=== PATIENT | male | born 1990 | race Caucasian/White ===

== ENCOUNTER → 2017-07-30 | Outpatient (REF) | payer BC ==
[2017-07-30 12:43] LABS: HEMATOCRIT 44.2 % (42.0-52.0); HEMOGLOBIN 15.6 g/dl (13.5-17.5); MEAN CORPUSCULAR HEMOGLOBIN 28.3 pg (27.0-33.0); MEAN CORPUSCULAR HGB CONC 35.3 g/dl (32.0-36.5); MEAN CORPUSCULAR VOLUME 80.2 fl (80.0-96.0); PLATELET COUNT, AUTOMATED 272 10^3/uL (150-450); RED BLOOD COUNT 5.51 10^6/uL (4.30-6.10); RED CELL DISTRIBUTION WIDTH 12.9 % (11.5-14.5); WHITE BLOOD COUNT 5.3 10^3/uL (4.0-10.0)
[2017-07-30 13:26] LABS: ALBUMIN 4.4 GM/DL (3.2-5.2); ALBUMIN/GLOBULIN RATIO 1.42 (1.00-1.93); ALKALINE PHOSPHATASE 56 U/L (45-117); ALT/SGPT 36 U/L (12-78); ANION GAP 5 MEQ/L (8-16); AST/SGOT 19 U/L (7-37); BILIRUBIN,TOTAL 0.3 MG/DL (0.2-1.0); BLOOD UREA NITROGEN 10 MG/DL (7-18); CALCIUM LEVEL 9.2 MG/DL (8.5-10.1); CARBON DIOXIDE LEVEL 27 MEQ/L (21-32); CHLORIDE LEVEL 108 MEQ/L (98-107); CREATININE FOR GFR 0.85 MG/DL (0.70-1.30); GLOMERULAR FILTRATION RATE > 60.0 (>60); GLUCOSE, FASTING 102 MG/DL (70-100); POTASSIUM SERUM 4.2 MEQ/L (3.5-5.1); SODIUM LEVEL 140 MEQ/L (136-145); TOTAL PROTEIN 7.5 GM/DL (6.4-8.2)
== END ==
LOC: M SFHCLERA 10:04
DX: I10 Essential (primary) hypertension (principal)
CPT/HCPCS: 80053

== ENCOUNTER 2019-12-19 10:55 | Emergency (ER) | payer BC, OTHER ==
[~2019-12-19] VITALS: Ht 165.1 cm; Wt 74.7 kg
[2019-12-19 10:56] VITALS: BP 165/101
[2019-12-19] MEDS ORDERED: IBUP200T45 PO (11:08)
--- NOTE | 2019-12-19 12:15 | REPVR ---
PROCEDURE INFORMATION: Exam: CT Cervical Spine Without Contrast Exam date and time: 12/19/2019 11:51 AM Age: 29 years old Clinical indication: Injury or trauma; Injury history: Trampoline; Initial encounter; Blunt trauma; Additional info: Injury/numbness in hands TECHNIQUE: Imaging protocol: Computed tomography images of the cervical spine without contrast. Radiation optimization: All CT scans at this facility use at least one of these dose optimization techniques: automated exposure control; mA and/or kV adjustment per patient size (includes targeted exams where dose is matched to clinical indication); or iterative reconstruction. COMPARISON: No relevant prior studies available. FINDINGS: Vertebrae: There is reversal of the normal cervical lordosis at C5 which may be related to muscle spasm. There is no subluxation or fracture. Discs/Spinal canal/Neural foramina: There are degenerative changes with anterior posterior osteophytes at C4-C5 and C5-C6 related to degenerative disc disease. There is central stenosis at C4-C5 and C5-C6. Soft tissues: Unremarkable. Lungs: Lung apices are normal. IMPRESSION: 1. There is reversal of the normal cervical lordosis at C5 which may be related to muscle spasm. 2. There is no subluxation or fracture. 3. Degenerative changes with central stenosis C4-C5 and C5-C6. Electronically signed by: Mina Butler On 12/19/2019 12:14:49 PM
[2019-12-19] MEDS ORDERED: PRED20TA PO (12:36)
[2019-12-19] MEDS ORDERED: CYCL5TAB PO (12:36)
== END 2019-12-19 13:00 | disposition home or self-care (01) ==
LOC: M ED 10:55
DX: S13.4XXA Sprain of ligaments of cervical spine, initial encounter (principal); Y92.9 Unspecified place or not applicable; Y93.44 Activity, trampolining; Y99.9 Unspecified external cause status; M48.02 Spinal stenosis, cervical region; F17.200 Nicotine dependence, unspecified, uncomplicated; I10 Essential (primary) hypertension

== ENCOUNTER 2021-12-31 14:46 | Emergency (ER) | payer BC, OTHER, SELFPAY ==
[~2021-12-31] VITALS: Ht 165.1 cm; Wt 68.2 kg
[~2021-12-31 14:46] MED LIST: CYCL5TAB PO; IBUP200T45 PO; PRED20TA PO
[2021-12-31 14:47] VITALS: BP 144/86
[2021-12-31] MEDS ORDERED: PROPARACAINE 0.5% OPHTH SOL 15ML XX ONE (17:10)
[2021-12-31] MEDS ORDERED: FLUORESCEIN OPHTH 1 MG STRIP XX ONE (17:10)
[2021-12-31] MEDS ORDERED: ERYT5OIN25 OP (17:31)
== END 2021-12-31 17:54 | disposition home or self-care (01) ==
LOC: M ED 16:05
DX: T15.01XA Foreign body in cornea, right eye, initial encounter (principal); F17.200 Nicotine dependence, unspecified, uncomplicated; Z79.891 Long term (current) use of opiate analgesic; Z79.899 Other long term (current) drug therapy